=== PATIENT | female | born 1965 | race Caucasian/White ===

== ENCOUNTER 2019-04-07 15:44 | Emergency (ER) | payer OTHER ==
[~2019-04-07] VITALS: Ht 165.1 cm; Wt 138.6 kg
[2019-04-07 15:46] VITALS: TEMP 96.6
[2019-04-07] MEDS ORDERED: TIROSINT S PO (16:30)
[2019-04-07] MEDS ORDERED: TRULICITY0.75 MG/0. SQ (16:31)
[2019-04-07] MEDS ORDERED: ALBUTEROL SULFAT3 M3 IH (16:31)
[2019-04-07] MEDS ORDERED: NORCO 325 MG-51 TAB PO (18:25)
[2019-04-07 18:40] VITALS: BP 145/93; PULSE 96
== END 2019-04-07 18:40 | disposition home or self-care (01) ==
LOC: COL.ER 15:44
DX: M25.562 Pain in left knee (principal); E03.9 Hypothyroidism, unspecified; E11.9 Type 2 diabetes mellitus without complications; E66.9 Obesity, unspecified; Z88.8 Allergy status to other drugs, medicaments and biological substances; G89.18 Other acute postprocedural pain
CPT/HCPCS: J1885

== ENCOUNTER → 2019-09-09 | Outpatient (CLI) | payer OTHER ==
[~2019-09-09] MED LIST: ALBUTEROL SULFAT3 M3 IH; NORCO 325 MG-51 TAB PO; TIROSINT S PO; TRULICITY0.75 MG/0. SQ
[2019-09-09 17:55] LABS: BASO # 0.1 (0.0-0.2); BASO % 0.7 % (0.0-2.0); EOS # 0.1 (0.0-0.7); EOS % 1.3 % (0-4.0); GRAN # 4.2 (1.4-6.5); GRAN % 51.4 % (42.2-75.2); HEMATOCRIT 45.8 % (37.0-47.0); HEMOGLOBIN 15.2 g/dl (12.5-16.0); LYMPH # 3.3 (1.2-3.4); LYMPH % 39.8 % (20.0-51.0); MEAN CELL VOLUME 86 fl (80.0-100.0); MEAN CORPUSCULAR HEMOGLOBIN 29 pg (27.0-31.0); MEAN CORPUSCULAR HGB CONC 33 g/dl (33.0-37.0); MEAN PLATELET VOLUME 10.1 fl (7.4-10.4); MONO # 0.5 (0.1-0.6); MONO % 6.4 % (1.7-9.3); PLATELET COUNT 262 K/mm3 (130-400)
[2019-09-09 18:08] LABS: ALBUMIN 4.3 gm/dL (3.5-5.0); BILIRUBIN,TOTAL 0.5 mg/dL (0.0-1.0); CALCIUM 9.2 mg/dL (8.4-10.2); CREATININE, serum 0.48 (0.52-1.25); POTASSIUM 3.8 mmol/L (3.4-5.0); TOTAL PROTEIN 7.4 gm/dL (6.4-8.2)
[2019-09-09 18:25] LABS: ERYTHROCYTE SEDIMENTATION RATE 5 mm/hr (0-30)
== END ==
LOC: COL.RAD 15:56
PROVIDERS: Emergency Medicine
DX: E11.65 Type 2 diabetes mellitus with hyperglycemia (principal); E03.9 Hypothyroidism, unspecified; K76.0 Fatty (change of) liver, not elsewhere classified; Z90.49 Acquired absence of other specified parts of digestive tract

== ENCOUNTER → 2020-02-28 | Outpatient (CLI) | payer OTHER | LOC: COL.PUL 13:00 | DX: R06.02 Shortness of breath (principal) | CPT/HCPCS: J7674 ==

== ENCOUNTER 2020-03-31 09:02 | Observation (INO) | payer OTHER ==
[~2020-03-31] VITALS: Ht 165.1 cm; Wt 135.3 kg
[2020-03-31] VITALS (100 sets, daily range): BP systolic 100–158; BP diastolic 56–83; PULSE 69–85; TEMP 97.5–98.8; O2SAT 89–100
[2020-03-31] MEDS ORDERED: LATUDA40 MG PO (10:02)
[2020-03-31] MEDS ORDERED: FARXIGA10 PO (10:03)
[2020-03-31] MEDS ORDERED: GLUCOPHAGE1000 MG PO (10:03)
[2020-03-31] MEDS ORDERED: ASPIRIN E.C. 8181 MG PO (10:05)
[2020-03-31] MEDS ORDERED: OZEMPIC1 MG/0.75 SQ (10:05)
[2020-03-31] MEDS ORDERED: ARMOUR THYROID30 MG PO (10:07)
[2020-03-31 11:12] LABS: HEMATOCRIT 42.7 % (37.0-47.0); MEAN CELL VOLUME 89 fl (80.0-100.0); MEAN CORPUSCULAR HEMOGLOBIN 29 pg (27.0-31.0); MEAN CORPUSCULAR HGB CONC 33 g/dl (33.0-37.0); MEAN PLATELET VOLUME 9.8 fl (7.4-10.4); PLATELET COUNT 254 K/mm3 (130-400); RED BLOOD COUNT 4.79 M/mm3 (4.10-5.30); REDCELL DISTRIBUTION WIDTH-CV 12.9 % (11.5-14.5)
[2020-03-31 11:22] LABS: CALCIUM 8.9 mg/dL (8.4-10.2); CREATININE, serum 0.5 (0.52-1.25); POTASSIUM 3.7 mmol/L (3.4-5.0)
[2020-03-31 11:23] LABS: PROTHROMBIN TIME 10.9 SECONDS (9.7-12.8)
--- NOTE | 2020-03-31 13:27 | NUR ---
SEE MERGE DOCUMENTATION FOR MEDICATION ADMINISTRATION AND INTRA/POST PROCEDURE SEDATION ASSESSMNETS.
--- NOTE | 2020-03-31 17:15 | NUR ---
Patient assisted to recliner with assist of 2 staff with hopes of stretching leg to see if that would help with pain or movement.
--- NOTE | 2020-03-31 17:32 | NUR ---
Patient having difficulty moving right leg. Notified Dr. Burch-asked to consult hospitalist. Notified Dr. Del Cid and Meagan SALES SPECIALIST of consult.
[2020-03-31 19:13] LABS: BASO # 0.1 (0.0-0.2); BASO % 0.6 % (0.0-2.0); EOS # 0.1 (0.0-0.7); EOS % 1.7 % (0-4.0); GRAN % 60.9 % (42.2-75.2); HEMATOCRIT 43.5 % (37.0-47.0); HEMOGLOBIN 14.1 g/dl (12.5-16.0); LYMPH # 2.5 (1.2-3.4); LYMPH % 30.2 % (20.0-51.0); MEAN CELL VOLUME 89 fl (80.0-100.0); MEAN CORPUSCULAR HEMOGLOBIN 29 pg (27.0-31.0); MEAN CORPUSCULAR HGB CONC 32 g/dl (33.0-37.0); MEAN PLATELET VOLUME 9.7 fl (7.4-10.4); MONO # 0.5 (0.1-0.6); MONO % 6.1 % (1.7-9.3); PLATELET COUNT 244 K/mm3 (130-400); REDCELL DISTRIBUTION WIDTH-CV 12.9 % (11.5-14.5)
[2020-03-31 19:16] LABS: PROTHROMBIN TIME 11.5 SECONDS (9.7-12.8)
[2020-03-31 19:19] LABS: PARTIAL THROMBOPLASTIN TIME 30.6 SECONDS (26.0-37.0)
[2020-03-31 19:31] LABS: ALANINE AMINOTRANSFERASE 22 U/L (4-34); ALKALINE PHOSPHATASE 74 U/L (50-136); ANION GAP 8 mmol/L (7-16); AST,SGOT 28 U/L (15-37); BILIRUBIN,TOTAL 0.5 mg/dL (0.0-1.0); BLOOD UREA NITROGEN 7 mg/dL (7-17); CALCIUM 8.7 mg/dL (8.4-10.2); CARBON DIOXIDE 26 mmol/L (22-30); CHLORIDE 104 mmol/L (98-107); CREATINE KINASE 93 U/L (30-135); CREATININE, serum 0.53 (0.52-1.25); GLUCOSE 133 mg/dL (74-106); POTASSIUM 3.4 mmol/L (3.4-5.0); SODIUM 139 mmol/L (137-145); TOTAL PROTEIN 6.8 gm/dL (6.4-8.2)
[2020-03-31 19:47] LABS: TROPONIN-I < 0.012 ng/mL (0.000-0.035)
--- NOTE | 2020-03-31 23:00 | NUR ---
Received patient via wheelchair from [facility]. She is alert and oriented. She had a heart cath done today. With right groin and right radial heart cath sites. Right groin is covered with gauze and tegaderm, clean, dry and intact. It has some blood on the gauze but it is dry. Right radial is open to air. Hand grisp are normal and equal. She cannot fully lift her right leg but have a good strength on her left leg. IV on her left forearm is infiltrated already and she complains of pain. Removed IV and Carlyn NICHOLSON reinserted a new IV on her left forearm using G22, infusing NS at 100ml/hr. She has a cane on the bedside and states she can walk with her cane. She complains of pain on her right groin when she moves and she has chronic pain on her left leg. Instructed patient on potassium replacement. Call light within reach.
[2020-03-31 23:12] LABS: COLLECTION METHOD CLEAN CATCH
[2020-03-31 23:32] LABS: MUCOUS Present /lpf; PH 5 (5-8); SQUAMOUS EPITHELIAL 0-2 /hpf; URINE APPEARANCE Clear; URINE BACTERIA None Seen /hpf; URINE BILIRUBIN Negative (NEGATIVE); URINE BLOOD Negative (NEGATIVE); URINE COLOR Yellow; URINE GLUCOSE 3+ (NEGATIVE); URINE KETONE Trace (NEGATIVE); URINE LEUKOCYTE ESTERASE Negative (NEGATIVE); URINE NITRATE Negative (NEGATIVE); URINE PROTEIN(semi-quant) Negative (NEGATIVE); URINE RBC 0-2 /hpf; URINE UROBILINOGEN Negative (NEGATIVE); URINE WBC 0-2 /hpf
[2020-04-01] VITALS: BP 124/56; PULSE 76; TEMP 97.5
--- NOTE | 2020-04-01 | NUR ---
Offered SCD to patient and explain the purpose of it but she refuses to use them.
[2020-04-01 00:47] VITALS: BP 124/56; PULSE 76; TEMP 97.5
[2020-04-01 04:07] VITALS: BP 117/68; PULSE 89; TEMP 97.6
[2020-04-01 04:08] VITALS: BP 119/68; PULSE 89; TEMP 97.6
--- NOTE | 2020-04-01 06:27 | NUR ---
Patient complains of pain on her right leg and states Tylenol didn't help that much. Dilaudid IV PRN given. She still can raise her right leg a little bit and hold it for few seconds. List of her medicines given to the patient.
[2020-04-01 07:23] LABS: CALCIUM 8.5 mg/dL (8.4-10.2); CREATININE, serum 0.51 (0.52-1.25)
[2020-04-01 08:34] VITALS: BP 135/75; PULSE 84; TEMP 98.1
[2020-04-01] MEDS ORDERED: NORCO 325 MG-51 TAB PO (08:51)
--- NOTE | 2020-04-01 09:27 | NUR ---
PATIENT IS SITTING IN BED AT THIS TIME. NOT REPORTING ANY PAIN. PATIENT IS ALERT AND ORIENTATED. ATE ALL HER BREAKFAST. PATIENT IS GOING TO STARTING GETTING DRESSED SHE IS READY TO GO HOME.
--- NOTE | 2020-04-01 10:19 | NUR ---
PATIENT WAS GONE OVER DISCHARGE INSTRUCTIONS WITH. SHE WANTS TO READ THE PACKETS AT HOME. IV WAS TAKEN OUT WITH NO ISSUES. PATIENT IS STILL IN ROOM WIATING ON HER TO COME AND PICK HER UP.
--- NOTE | 2020-04-01 12:47 | NUR ---
Plan: To return home to [facility] with her Spouse Dex and DTR Nicholas . Assessment:Client reports that for emergencies her DTR is more appropriate to call. Spouse is reported to not answer the phone. Patient reports that her sister Margaret Dennis is her POA but did not give phone number. Patient reports that the POA is on File with the [facility]. PCP is reported as Dr. Malcolm and specialist Dr. Vasquez. Patient has a follow up appointment on Apr 14. Patient reports that she has a walker and cane due to foot surgery. Patient obtains medication from [facility] on [facility] in . Action: SW educated client on home health care through medicare.gov and her insurance. SW educated patient on community care supports in and [employer]. SW gave client references to facilities in her home area. SW identified additional needs and support patient in services. Nothing follows.
== END 2020-04-01 11:15 | disposition home or self-care (01) ==
LOC: COL.CAR → MEDICAL 20:10
PROVIDERS: Internal Medicine Cardiovascular Disease; Nurse Practitioner Family; ADMIT Internal Medicine Pulmonary Disease
DX: R07.9 Chest pain, unspecified (principal); R53.1 Weakness; I27.20 Pulmonary hypertension, unspecified; E87.6 Hypokalemia; E66.01 Morbid (severe) obesity due to excess calories; E11.9 Type 2 diabetes mellitus without complications; J45.909 Unspecified asthma, uncomplicated; G47.33 Obstructive sleep apnea (adult) (pediatric); E03.9 Hypothyroidism, unspecified; F31.9 Bipolar disorder, unspecified; D64.9 Anemia, unspecified; Z68.42 Body mass index [BMI] 45.0-49.9, adult; Z79.84 Long term (current) use of oral hypoglycemic drugs; Z88.3 Allergy status to other anti-infective agents; Z91.040 Latex allergy status; Z86.73 Personal history of transient ischemic attack (TIA), and cerebral infarction without residual deficits; Z79.82 Long term (current) use of aspirin; I49.3 Ventricular premature depolarization
CPT/HCPCS: 99223-AI; 99239; G0378; G0379; J1170; J1644; J1815; J2250; J3010; J7030; Q9967